=== PATIENT | female | born 1955 | race African-American/Black ===

== ENCOUNTER 2022-02-22 21:18 | Emergency (ER) | payer SELFPAY ==
[~2022-02-22] VITALS: Ht 167.6 cm; Wt 64.0 kg
[2022-02-23 04:00] VITALS: BP 106/71
== END 2022-02-23 06:37 | disposition home or self-care (01) ==
LOC: ER 21:18
DX: F10.129 Alcohol abuse with intoxication, unspecified (principal); Y90.0 Blood alcohol level of less than 20 mg/100 ml; J45.909 Unspecified asthma, uncomplicated
CPT/HCPCS: 99283